=== PATIENT | female | born 1945 | race Caucasian/White ===

== ENCOUNTER → 2018-07-23 | Outpatient (CLI) | payer OTHER ==
[~2018-07-23] MED LIST: ACETAMINOPHEN650 M5 PO; ASPIRIN EC81 M1 PO; ASPIRIN325 PO; ATENOLOL 100MG100 MG PO; ATENOLOL 50 MG50 M1 PO; CALCIUM 500+D1 EAC2 PO; COLACE100 MG PO; CRESTOR40 MG PO; CYMBALTA30 MG PO; DIFLUNISAL500 MG PO; DULOXETINE HCL60 MG PO; EFFEXOR XR75 MG PO; FISH OIL 1,2001 EAC4 PO; FISH OIL SOFTG1 EACH PO; FOLIC ACID1 MG PO; FOSAMAX5 MG PO; GLUCOSAMINE1000 MG PO; HYDROCODONE-AP1 EAC6 PO; KLOR-CON 1010 MEQ PO; LASIX 20 MG TAB20 MG PO; LEVAQUIN 750 M750 MG PO; LYRICA150 MG PO; LYRICA300 MG PO; NEURONTIN600 MG PO; OXYCODONE HCL 55 MG PO; PREDNISOLONE 5 M5 M1 PO; PREDNISONE 10 M10 M1 PO; PRINIVIL20 M1 PO; PROTONIX40 M4 PO; SYNTHROID125 MCG PO; SYNTHROID137 MCG PO; TRIAMTERENE-HC1 EAC1 PO; ULTRAM 50MG TAB50 MG PO; UNICOMPLEX M TA1 TA1 PO; VITAMIN D400 UNI1 PO; XARELTO10 MG PO
== END ==
LOC: M.RAD 07-07 17:22
DX: Z12.31 Encounter for screening mammogram for malignant neoplasm of breast (principal); E03.9 Hypothyroidism, unspecified; Z78.0 Asymptomatic menopausal state

== ENCOUNTER → 2020-06-27 | Outpatient (CLI) | payer OTHER | LOC: M.RAD 13:12 | PROVIDERS: ATTEND Family Medicine | DX: Z12.31 Encounter for screening mammogram for malignant neoplasm of breast (principal) ==